=== PATIENT | female | born 1965 | race American Indian/Alaskan Native ===

== ENCOUNTER 2016-12-24 23:04 | Emergency (ER) | payer MEDICAID ==
[2016-12-25 00:35] LABS: Urine Drugs of Abuse Note Disclamer
[2016-12-25] MEDS ORDERED: HALDOL ONE (00:43)
[2016-12-25] MEDS ORDERED: ATIVAN ONE (00:44)
[2016-12-25] MEDS ORDERED: ATIVAN IM ONE (00:47)
[2016-12-25] MEDS ORDERED: HALDOL IM ONE (00:47)
--- NOTE | 2016-12-25 00:47 | Emergency Department Report ---
ED Psych HPI - General Chief Complaint: Psych Stated Complaint: MH EVAL Time Seen by Provider: 12/24/16 23:59 Source: patient, police Mode of arrival: Stretcher - History of Present Illness Initial Comments: This is a 51-year-old female brought in by police. She is minimally cooperative with me tonight. She is brought in by police. She made comments to police that she wanted to cut her throat. She did indicate that she has diabetes and hypertension doesn't feel lites were living anymore. She does not endorse any specific stressors to me. Again she is fairly poor contributory to her evaluation here. ED caveat Is taken. - Related Data Home Medications Medication Instructions Recorded Confirmed Last Taken Unobtainable 12/25/16 12/25/16 Unknown Allergies Allergy/AdvReac Type Severity Reaction Status Date / Time Unable to Assess Allergy Unverified 12/25/16 01:53 ED Review of Systems ROS: Stated complaint: MH EVAL Other details as noted in HPI Comment: Unobtainable due to pts medical conditions Constitutional: denies: fever Respiratory: denies: shortness of breath Cardiovascular: denies: chest pain Gastrointestinal: denies: abdominal pain Psychiatric: suicidal thoughts. denies: homicidal thoughts ED Past Medical Hx - Past Medical History Previous Medical History?: Yes Hx Hypertension: Yes Hx Diabetes: Yes Hx Arthritis: Yes Hx Psychiatric Treatment: Yes - Surgical History Past Surgical History?: Yes Additional Surgical History: Left knee replacement - Social History Smoking Status: Current Every Day Smoker - Medications Home Medications: Home Medications Medication Instructions Recorded Confirmed Last Taken Type Unobtainable 12/25/16 12/25/16 Unknown History ED Physical Exam - General Limitations: Other General appearance: alert, other - Head Head exam: Present: atraumatic, normocephalic - Eye Eye exam: Present: normal appearance, EOMI. Absent: scleral icterus - ENT ENT exam: Present: normal exam, normal orophraynx, mucous membranes moist. Absent: mucous membranes dry - Neck Neck exam: Present: normal inspection, full ROM. Absent: meningismus, lymphadenopathy - Respiratory Respiratory exam: Present: normal lung sounds bilaterally. Absent: respiratory distress, wheezes, rales - Cardiovascular Cardiovascular Exam: Present: regular rate, normal rhythm. Absent: systolic murmur, diastolic murmur, rubs, gallop - GI/Abdominal GI/Abdominal exam: Present: soft, normal bowel sounds. Absent: tenderness, guarding - Extremities Exam Extremities exam: Present: normal inspection. Absent: tenderness, pedal edema, calf tenderness - Back Exam Back exam: Present: normal inspection. Absent: tenderness, CVA tenderness (R), CVA tenderness (L) - Neurological Exam Neurological exam: Present: alert, oriented X3 - Psychiatric Psychiatric exam: Present: agitated - Skin Skin exam: Present: warm, dry, intact, normal color. Absent: rash ED Course Vital Signs 12/24/16 12/24/16 12/25/16 23:31 23:53 00:00 Temperature 98.4 F 98.4 F Pulse Rate 67 67 Respiratory 14 Rate Blood Pressure 111/75 Blood Pressure 111/70 [Right] O2 Sat by Pulse 98 98 98 Oximetry - Reevaluation(s) Reevaluation #1: 12/25/16 04:54 Lab studies are noted to be unremarkable in general. I did put 1013 on her based on her accusations to police. She did not specifically to me endorse any suicidal ideations. Frankly she was not very cooperative in all. Awaiting for psychiatric evaluation and crisis evaluation for placement. Stable otherwise appropriate for transfer. ED Medical Decision Making - Lab Data Result diagrams: 12/25/16 00:43 12/25/16 00:43 Critical care attestation.: If time is entered above; I have spent that time in minutes in the direct care of this critically ill patient, excluding procedure time. ED Disposition Clinical Impression: Suicidal ideations Disposition: DC/TX PSY HOSP/PSY UNIT Is pt being admited?: No Does the pt Need Aspirin: No Condition: Stable Time of Disposition: 04:48
[2016-12-25 00:50] LABS: Bacteria,Urine 3+ /HPF (Negative); Bilirubin,Urine NEG (Negative); Blood,Urine SM (Negative); Ketones,Urine NEG (Negative); Leukocyte Esterase,Urine NEG (Negative); Mucus,Urine FEW /HPF; Nitrite,Urine POS (Negative); Protein,Urine <15 mg/dL mg/dL (Negative); Urobilinogen,Urine < 2.0 mg/dL (<2.0)
[2016-12-25 00:58] LABS: Basophils % (Auto) 0.6 % (0.0-1.8); Hematocrit 44.2 % (30.3-42.9); Hemoglobin 14.3 gm/dl (10.1-14.3); Mean Corpuscular HGB Conc 32 % (30-34); Mean Corpuscular Hemoglobin 30 pg (28-32); Mean Corpuscular Volume 93 fl (79-97); Platelet Count 241 K/mm3 (140-440); Red Blood Count 4.76 M/mm3 (3.65-5.03); Red Cell Distribution Width 14.2 % (13.2-15.2); White Blood Count 8.9 K/mm3 (4.5-11.0)
[2016-12-25 01:17] LABS: Alanine Aminotransferase 21 units/L (7-56); Albumin 4.7 g/dL (3.9-5); Albumin/Globulin Ratio 1.5 %; Alkaline Phosphatase 116 units/L (35-129); Anion Gap 20 mmol/L; BUN/Creatinine Ratio 14.44; Bilirubin,Total 0.5 mg/dL (0.1-1.2); Blood Urea Nitrogen 13 mg/dL (7-17); Calcium 10.4 mg/dL (8.4-10.2); Carbon Dioxide 22 mmol/L (22-30); Chloride 103.6 mmol/L (98-107); Glucose 109 mg/dL (65-100); Potassium 4.2 mmol/L (3.6-5.0); Sodium 141 mmol/L (137-145); Total Protein 7.9 g/dL (6.3-8.2)
[2016-12-25 12:04] VITALS: BP 121/79
[2016-12-25] MEDS ORDERED: TYLENOL PO ONE (12:56)
== END 2016-12-25 13:52 ==
LOC: EDBD → EEVIPCON 23:04 → ED 23:04
DX: R45.851 Suicidal ideations (principal); I10 Essential (primary) hypertension; E11.9 Type 2 diabetes mellitus without complications; M19.90 Unspecified osteoarthritis, unspecified site; F17.200 Nicotine dependence, unspecified, uncomplicated
CPT/HCPCS: 36415; 80053; 80307; 81001; 82962; 85025; 96372; 99285; G0480; J1630; J2060; 80320